=== PATIENT | female | born 1970 | race Caucasian/White ===

== ENCOUNTER → 2020-12-06 15:14 | Outpatient (CLI) | payer OTHER, SELFPAY ==
--- NOTE | ~2020-12-06 | US_ITS ---
EXAMINATION: US pelvic complete w TV DATE: 12/06/2020 15:43 INDICATION: Dyspareunia. Pelvic pain. History of fibroids. Comparison:No prior studies for comparison. TECHNIQUE: Multiple transabdominal and endovaginal sonographic images of the pelvis performed. FINDINGS: The uterus measures 11.9 x 7.8 x 8.5 cm. There are multiple uterine fibroids limiting evalu ation of the endometrium. The ovaries are not visualized. There is no free fluid in the pelvis. There are no abnormal masses s een on either side. IMPRESSION: 1. Enlarged fibroid uterus, largest discrete fibroid measuring 5.4 cm greatest dimension. Reviewed, dictated and finalized at location B.
== END ==
PROVIDERS: PCP Nurse Practitioner Family; Visit Provider Nurse Practitioner Family
DX: N94.10 Unspecified dyspareunia (principal); D25.9 Leiomyoma of uterus, unspecified
CPT/HCPCS: 76830; 76856

== ENCOUNTER → 2021-08-15 14:56 | Outpatient (CLI) | payer OTHER, SELFPAY ==
--- NOTE | ~2021-08-15 | MM_ITS ---
EXAMINATION: MM scrn eddie implant RT w desirae HISTORY: Screening mammogram TECHNIQUE: Craniocaudal and mediolateral oblique 3-D tomosynthesis images with implant displacement a nd synthetic 2-D images were generated. Craniocaudal and mediolateral oblique views of the breasts wi thout implant displacement were obtained using full field digital mammography. CAD analysis was submi tted and interpreted. COMPARISON: 10/24/2018 BREAST PARENCHYMAL COMPOSITION: The breasts are heterogenously dense, which may obscure small masses FINDINGS: There is a subpectoral saline implant. There is a new focal asymmetry centrally in the righ t breast, best seen on MLO implant displaced view. IMPRESSION: 1. New focal right breast asymmetry. 2. Additional mammographic views and possible breast ultrasound are recommended. BI-RADS Category 0: Incomplete: Needs additional imaging evaluation. Reviewed, dictated and finalized at location A. IMPRESSION: 1. New focal right breast asymmetry. 2. Additional mammographic views and possible breast ultrasound are recommended . BI-RADS Category 0: Incomplete: Needs additional imaging evaluation.
== END ==
PROVIDERS: PCP Nurse Practitioner Family; Visit Provider Nurse Practitioner Family
DX: Z12.31 Encounter for screening mammogram for malignant neoplasm of breast (principal); R92.8 Other abnormal and inconclusive findings on diagnostic imaging of breast
CPT/HCPCS: 77063; 77067

== ENCOUNTER → 2021-09-06 14:31 | Outpatient (CLI) | payer OTHER, SELFPAY ==
--- NOTE | ~2021-09-06 | MMUS_ITS ---
EXAMINATION: MM diag eddie implant RT w desirae, US breast RT complete HISTORY: Follow-up right breast asymmetry TECHNIQUE: Additional 3-D tomosynthesis images of the right breast were performed and synthetic 2-D i mages were generated. CAD analysis was submitted and interpreted. High resolution Limited right breas t ultrasound was performed. COMPARISON: Comparison to multiple prior studies sequentially, with oldest reviewed study dated 06/2018. BREAST PARENCHYMAL COMPOSITION: The breasts are heterogenously dense, which may obscure small masses FINDINGS: MAMMOGRAPHIC FINDINGS: There is a focal mass in the upper aspect of the right breast, middle third, partially obscured by fi broglandular tissue. This is not well demonstrated on CC view. ULTRASOUND: Complete US of all 4 quadrants of the right breast and retroareolar region was reviewed. At 12:00, 1 cm from the nipple there is an oval hypoechoic mass with circumscribed margins, parallel orientation, mild posterior enhanced or transmission and no significant internal vascularity measuring 1.3 x 1.2 x 0.5 cm. There is a similar appearing 4 mm hypoechoic nodule adjacent to the dominant nodule. The arterial lobe there is a 6 mm cyst. At 9:00, 7 cm from the nipple there is an oval hypoechoic mas s measuring 4 mm without posterior features, parallel orientation and no internal vascularity. IMPRESSION: 1. Probable benign right breast masses. 2. Recommend 6 month follow-up diagnostic right mammogram and ultrasound BI-RADS category 3, probably benign findings. Reviewed, dictated and finalized at location A. IMPRESSION: 1. Probable benign right breast masses. 2. Recommend 6 month follow-up diagnostic right mammogram and ultrasound BI-RADS category 3, probably benign findings.
== END ==
PROVIDERS: PCP Nurse Practitioner Family; Visit Provider Nurse Practitioner Family
DX: R92.8 Other abnormal and inconclusive findings on diagnostic imaging of breast (principal); N63.15 Unspecified lump in the right breast, overlapping quadrants; N60.01 Solitary cyst of right breast
CPT/HCPCS: 76641; 77061; 77065; G0279